=== PATIENT | female | born 1990 | race Caucasian/White ===

== ENCOUNTER 2024-06-14 08:29 | Emergency (ER) | payer OTHER, SELFPAY ==
[2024-06-14 09:02] VITALS: BP 129/91; PULSE 72; RESP 18; TEMP 36.2; O2SAT 100
--- NOTE | 2024-06-14 09:32 | ED.EYEPROB ---
HPI - Eye Problem General Chief complaint: Eye Problems Stated complaint: LT eye injury Time Seen by Provider: 06/14/24 09:32 Source: patient and RN notes reviewed Mode of arrival: ambulatory Limitations: no limitations History of Present Illness HPI Narrative: 34-year-old female presents to the [facility] with complaints of left eye pain after her son scratched her eye. Patient states that about 5:30 p.m. last night patient was playing with her son who then poked her in the eye mistaking me. States everything looks blurry. Reports pain and tearing. No hyphema noted. Patient unknown last Tdap Onset (ago): hour(s) (18) Treatments Prior to Arrival: irrigated eye and NSAID Related Data Patient tetanus UTD: No Allergies Allergy/AdvReac Type Severity Reaction Status Date / Time No Known Allergies Allergy Unverified 05/17/15 02:34 Review of Systems Review of Systems: All systems reviewed & are unremarkable except as noted in HPI and below Constitutional: Constitutional: Reports no additional constitutional complaints Eyes: Eyes: Reports as per HPI, Reports blurry vision, Reports irritation, Denies loss of vision, Reports eye pain, Denies requires corrective lenses and Reports photophobia ENT: Reports system reviewed and no additional complaints, except as documented Cardiovascular: Cardiovascular: Reports no additional cardiovascular complaints, Denies chest pain and Denies dyspnea Respiratory: Respiratory: Reports no additional respiratory complaints, Denies chest congestion, Denies cough and Denies dyspnea Gastrointestinal: Gastrointestinal: Reports no additional gastrointestinal complaints, Denies abdominal pain, Denies nausea and Denies vomiting Musculoskeletal: Musculoskeletal: Reports no additional musculoskeletal complaints Integumentary/Breasts: Skin/Breast: Reports system reviewed and no additional complaints, except as docu Neurologic: Reports system reviewed and no additional complaints, except as documented Psychiatric: Psychiatric: Reports no additional psychiatric complaints Allergic/Immunologic: Allergic/Immunologic: Reports no additional allergic/immunologic complaints PMFSH Comments At the time of my signature, I reviewed and agree with the nursing past medical, surgical, social, and family history. There is no relevant family history pertinent to the patient complaint. Exam Const: General: cooperative, healthy appearing, no acute distress, well developed, alert, uncomfortable and well nourished Nutritional Appearance: well nourished Orientation/consciousness: patient oriented x3 Limitations: no limitations HENMT: Head: normal to inspection Ears: hearing grossly normal bilaterally and external ears normal Face/Nose/Sinus: Normal external nose present, Normal nares present, Normal nasal mucous membranes and turbinates present, normal facial exam and face symmetric Face and sinus: normal facial exam and face symmetric Eyes: General: appearance normal, both eyes and all related structures Alignment and Position: alignment normal Periorbital: periorbital findings normal Conjunctivae: conjunctivae normal Cornea: corneas abnormal on the left fluorescein used and abrasion curved and at the following clock position (12-1 iris) and fluorescein used Pupils: Equal, round and reactive pupils present EOM: EOMs intact bilaterally Eyes/upper lids images: 1. Neck: Neck: normal visual inspection, full ROM, no lymphadenopathy and no meningeal signs Chest: Chest palpation & inspection: normal inspection of the chest Resp: Effort & Inspection: normal respiratory effort and able to speak in complete sentences Cardio: Rate: regular rate Skin: General skin exam: normal color and no rashes or lesions noted Lesions: no lesions Rashes: no rashes Trauma: no lacerations or abrasions Wounds: no wounds Neuro: General: patient oriented x3, gait normal, tone normal, moves all extremities and no meningeal sign
[2024-06-14] MEDS: TETRACAINE HCL 0.5% OPHTH SOLN 4 ML BTL 1 DROP LEFT EYE (09:43)
[2024-06-14] MEDS: FLUORESCEIN SOD 1 MG/STRIP LEFT EYE (09:43)
[2024-06-14] MEDS: TETANUS,DIPHTHERIA,AC PERTUSSIS ADULT (0.5 ML) BOOSTRIX IM (09:44)
== END 2024-06-14 10:06 | disposition home or self-care (01) ==
PROVIDERS: Emergency Provider Nurse Practitioner
DX: S05.02XA Injury of conjunctiva and corneal abrasion without foreign body, left eye, initial encounter (principal); W50.4XXA Accidental scratch by another person, initial encounter; Z23 Encounter for immunization
CPT/HCPCS: 90471; 90715; 99213; G0463